=== PATIENT | male | born 1945 | race Caucasian/White ===

== ENCOUNTER 2019-10-02 10:30 | Outpatient (CLI) | payer MEDICARE, OTHER, SELFPAY ==
--- NOTE | ~2019-10-02 | CT_ITS ---
EXAMINATION: CT chest wo con DATE: 10/02/2019 10:59 INDICATION: Generalized enlarged lymph nodes, shortness of breath and history of lung cancer TECHNIQUE: Computed tomography (CT) of the chest was performed without intravenous contrast. The dose -length product (DLP) was 340.76 mGy-cm. 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 COMPARISON: 08/08/2019 FINDINGS: Volume loss in the right hemithorax is consistent with history of lung cancer and partial p neumonectomy. There has been near complete resolution of previously identified right lung airspace op acities. Mediastinal lymphadenopathy has resolved. There is calcified coronary artery atherosclerosis . The heart size is normal. There is no pleural effusion or pneumothorax. Moderate emphysema is noted . Punctate calcifications in otherwise normal appearing liver and spleen likely represent healed gran ulomatous disease. IMPRESSION: 1. Near complete resolution of previously described right lung airspace opacities, consistent with re solving pneumonia. 2. Resolved reactive mediastinal lymphadenopathy. Reviewed, dictated and finalized at location A. 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 Near complete resolution of previously described right lung airspace opaciti es, consistent with resolving pneumonia. 2. Resolved reactive mediastinal lymphadenopathy.
== END 2019-10-02 10:31 | disposition home or self-care (01) ==
LOC: ANHIMG 10:33
PROVIDERS: PCP Internal Medicine; Visit Provider Nurse Practitioner
DX: R59.1 Generalized enlarged lymph nodes (principal)
CPT/HCPCS: 71250

== ENCOUNTER 2020-01-10 10:48 | Outpatient (CLI) | payer MEDICARE, OTHER, SELFPAY ==
--- NOTE | ~2020-01-10 | XR_ITS ---
XR chest 2V 01/10/2020 11:19 Indication: Cough and shortness of breath. History of lung cancer. Procedure: PA and lateral views of the chest Comparison: Comparison to multiple prior studies sequentially, with oldest reviewed study dated 09/23. Findings: There is blunting right lateral costophrenic recess, likely from previous right lower lobec lilo. Heart size normal. No acute focal pneumonia, edema or effusion. No acute osseous abnormality. Impression: 1: No acute cardiopulmonary disease. Reviewed, dictated and finalized at location A. Impression: 1: No acute cardiopulmonary disease.
== END 2020-01-10 10:49 | disposition home or self-care (01) ==
PROVIDERS: PCP Internal Medicine; Visit Provider Clinical Nurse Specialist
DX: R05 Cough (principal); R06.02 Shortness of breath; Z85.89 Personal history of malignant neoplasm of other organs and systems
CPT/HCPCS: 71046

== ENCOUNTER 2020-06-25 08:16 | Outpatient (CLI) | payer MEDICARE, OTHER, SELFPAY ==
--- NOTE | ~2020-06-25 | US_ITS ---
US arterial ankle brachial ind INDICATION: Peripheral vascular disease TECHNIQUE: Segmental pressures and plethysmographic and Doppler waveforms of the brachial and lower e xtremity arteries were obtained. COMPARISON: None. FINDINGS: Right and left brachial artery pressures of 122 mm Hg and 141 mm Hg, respectively, are concordant (no rmal difference <= 30 mmHg). The right ankle-brachial index (EDMOND) is 1.03 (normal >= 0.9-1.0). The right great toe-brachial index (TBI) is 0.7 (normal >= 0.60). The left EDMOND is 0.96. The left TBI is 0.94. IMPRESSION: 1. Normal ankle-brachial indices. Reviewed, dictated and finalized at location B.
== END 2020-06-25 08:17 | disposition home or self-care (01) ==
LOC: ANHIMG 08:19
PROVIDERS: PCP Internal Medicine; Visit Provider Internal Medicine
DX: I73.9 Peripheral vascular disease, unspecified (principal)
CPT/HCPCS: 93922

== ENCOUNTER 2020-07-08 14:11 | Outpatient (CLI) | payer MEDICARE, OTHER, SELFPAY ==
--- NOTE | 2020-07-14 14:35 | WPDPFTINT ---
PFT Interpretation PFT Interpretation: DOS: 07/08/2020 REQUESTING: Dr. Bravo REASON FOR TESTING: COPD SPIROMETRY The FEV1 is 73% predicted, 1.99 L. FVC is normal 97%. The FEV1/ FVC ratio is decreased at 50%. The FEF 25-75 is severely decreased at 23%. No bronchodilator was given. IMPRESSION: Mild obstructive ventilatory impairment which is severe in the small airways. No bronchodilator was given. Compared to prior study on June 11, 2016 the patient had a mild obstructive ventilatory impairment as well without response to bronchodilator. His FEV1% was 80 %, now 73%, decreased. There was a severe decrease in small airways flows.
== END 2020-07-08 14:12 | disposition home or self-care (01) ==
PROVIDERS: PCP Internal Medicine; Visit Provider Internal Medicine
DX: J44.9 Chronic obstructive pulmonary disease, unspecified (principal); R94.2 Abnormal results of pulmonary function studies
CPT/HCPCS: 94375

== ENCOUNTER 2020-09-16 03:14 | Outpatient (CLI) | payer MEDICARE, OTHER, SELFPAY ==
[2020-09-16 19:22] LABS: SARS-CoV-2 RNA PCR Negative
== END 2020-09-16 03:15 | disposition home or self-care (01) ==
LOC: ANHCOVIDDT 03:15
PROVIDERS: PCP Internal Medicine; Visit Provider Internal Medicine Cardiovascular Disease
DX: Z01.812 Encounter for preprocedural laboratory examination (principal); Z20.822 Contact with and (suspected) exposure to COVID-19
CPT/HCPCS: C9803; U0003; U0005

== ENCOUNTER 2020-09-19 02:13 | Day surgery (SDC) | payer MEDICARE, OTHER, SELFPAY ==
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
[2020-09-18 16:40] VITALS: BMI 31.5
[2020-09-19 09:36] VITALS: BP 119/80; PULSE 82; RESP 16; O2SAT 96; BMI 31.6
--- NOTE | 2020-09-19 09:36 | ECG_ITS ---
Measurements Intervals [place] Rate: 87 P: ID: 0 QRS: 42 QRSD: 102 T: 30 QT: 350 QTc: 422 Interpretive Statements ATRIAL FIBRILLATION ABNORMAL ECG Electronically Signed On 09-19-2020 9:56:17 SOLUTIONS DEVELOPER by Nikolai Palacios D.O.
--- NOTE | 2020-09-19 09:54 | WPDHPUPDATE1 ---
History and Physical Update Update Date/Time: 09/19/20 09:54 History and Physical has been reviewed, including an updated exam of the patient. There are NO changes in the patient's condition. Risks, benefits, and alternatives have been discussed and questions answered. Patient agrees to proceed with procedure.
--- NOTE | 2020-09-19 09:54 | WPDCARDVER ---
Cardioversion Cardioversion Date of procedure: 09/19/20 Procedure: Elective electrical cardioversion Pre-op diagnosis: symptomatic atrial fibrillation Post-op diagnosis: same Indications: symptomatic atrial fibrillation Description of procedure: Brief history present illness: Patient is a pleasant 75-year-old male with past medical history significant for paroxysmal atrial fibrillation, lung cancer, COPD, hypertension, dyslipidemia, diabetes mellitus, CAD with prior stent implantation who presented to the office 09/12/2020 with complaints of progressive shortness of breath and fatigue found to be in atrial fibrillation refractory to medical therapy. Patient subsequently referred for elective electrical cardioversion in attempt to restore sinus rhythm. Procedure in detail: After verbal and written informed consent was obtained the patient risks, benefits, and alternatives explained in detail the patient agreed to proceed with the plan of care as outlined above. Patient was evaluated at bedside in the [facility] procedure room. On examination, neck was supple with normal range of motion, no restrictions to opening of the oral cavity, jaw angle and posterior hypopharynx was clear. Lungs were clear to auscultation. Patient was placed in appropriate 30 to 45 degree angle in a supine position. Patient was monitored throughout the study with telemetry, oxygen saturation, end-tidal CO2 monitoring, blood pressure, heart rate, and respirations. Anterior and posterior defibrillator pads placed in the appropriate positions. After confirmation of adequate sedation electrical cardioversion was carried out without complication. Patient tolerated the procedure well without difficulty. Sedation: Moderate Sedation/Anesthesia administration: Please see Anesthesiology documentation for procedure details and sedation administration. There were no other issues or complications and patient tolerated the procedure well and sedation protocol well and I was present for the entirety. Findings: Elective electrical cardioversion: After confirmation of adequate sedation and persistence of atrial fibrillation, 200 joules synched biphasic energy x1 was delivered with immediate confucianist of sinus rhythm. Twelve lead EKG was obtained postprocedure confirming sinus rhythm. Complications: None Conclusion: Successful confucianist of sinus rhythm with 200 joules synched biphasic energy x1. Continue systemic anticoagulation without interruption until advised but especially over the next 30 days post cardioversion Continue current medical therapy..
[2020-09-19 10:14] LABS: Anion Gap 11 mmol/L (8-16); Blood Urea Nitrogen 23 mg/dL (9-20); Calcium 9.1 mg/dL (8.4-10.2); Carbon Dioxide 27 mmol/L (22-30); Chloride 101 mmol/L (98-107); Estimated CRCL calculation 32 ml/min; Estimated Glomerular Filt Rate 31; Glucose 139 mg/dL (75-110); Magnesium 1.7 mg/dL (1.6-2.3); Potassium 3.7 mmol/L (3.4-5.0); Sodium 139 mmol/L (137-145)
--- NOTE | 2020-09-19 10:43 | ECG_ITS ---
Measurements Intervals [place] Rate: 60 P: 67 MT: 176 QRS: 28 QRSD: 102 T: 46 QT: 414 QTc: 417 Interpretive Statements SINUS RHYTHM BASELINE ARTIFACT- V2 NORMAL ECG Electronically Signed On 09-19-2020 10:55:36 HISTOPATH TECH by Nikolai Palacios D.O.
[2020-09-19 10:50] VITALS: BP 112/62; PULSE 62; RESP 15; O2SAT 99
[2020-09-19 11:05] VITALS: BP 101/71; PULSE 61; RESP 13; O2SAT 97
[2020-09-19 11:20] VITALS: BP 107/59; PULSE 64; RESP 15; O2SAT 98
--- NOTE | 2020-09-19 12:47 | SUR.PHASEII ---
Patient educated on follow up care at time of discharge, including medication regimen, reportable S/S, and scheduled follow-up appointments. Patient A & O x 4 and denies pain. PIV removed. VSS. Patient verbalizes understanding of plan of care. All questions answered. Patient taken to vehicle via WC with staff, and was picked up by his .
== END 2020-09-19 12:45 | disposition home or self-care (01) ==
PROVIDERS: PCP Internal Medicine; Visit Provider Internal Medicine Cardiovascular Disease
PROC: 5A2204Z Restoration of Cardiac Rhythm, Single (ICD-10-PCS; principal; 2020-09-19 10:30)
DX: I48.20 Chronic atrial fibrillation, unspecified (principal); I12.9 Hypertensive chronic kidney disease with stage 1 through stage 4 chronic kidney disease, or unspecified chronic kidney disease; F41.9 Anxiety disorder, unspecified; J45.909 Unspecified asthma, uncomplicated; I25.10 Atherosclerotic heart disease of native coronary artery without angina pectoris; N18.9 Chronic kidney disease, unspecified; J44.9 Chronic obstructive pulmonary disease, unspecified; E11.9 Type 2 diabetes mellitus without complications; E78.5 Hyperlipidemia, unspecified; D72.829 Elevated white blood cell count, unspecified; D61.818 Other pancytopenia; K42.9 Umbilical hernia without obstruction or gangrene; Z87.891 Personal history of nicotine dependence
CPT/HCPCS: 36415; 80048; 83735; 92960; 93005; J2704

== ENCOUNTER 2020-09-22 09:19 | Outpatient (CLI) | payer MEDICARE, OTHER, SELFPAY ==
--- NOTE | 2020-09-22 13:19 | WPDSIXMINUTE ---
Six Minute Walk This is a 6 minutes walk for exertional dyspnea. Findings: The patient's resting room air oxygen saturation measured by pulse oximetry was 94% and her heart rate was 79 bpm. Patient ambulated for 304 meters and oxygen saturation remained 92 to 95%. Heart rate at the end of the study was 96 bpm. There are no prior studies for comparison.
== END 2020-09-22 09:20 | disposition home or self-care (01) ==
PROVIDERS: PCP Internal Medicine; Visit Provider Internal Medicine
DX: R06.09 Other forms of dyspnea (principal)
CPT/HCPCS: 99199

== ENCOUNTER 2021-05-27 06:55 | Outpatient (RCR) | payer MEDICARE, OTHER, SELFPAY ==
[2021-05-26 09:48] LABS: Hematocrit 25.5 % (42.0-52.0); Hemoglobin 7.5 g/dL (14.0-18.0)
[2021-05-27 08:54] VITALS: BP 115/62; PULSE 80; RESP 16; TEMP 36; O2SAT 98
[2021-05-27 09:15] VITALS: BP 111/57; PULSE 82; RESP 16; TEMP 36.1; O2SAT 100
[2021-05-27 10:15] VITALS: BP 110/59; PULSE 80; RESP 16; TEMP 36.2; O2SAT 100
[2021-05-27 11:15] VITALS: BP 108/59; PULSE 77; RESP 17; TEMP 35.9; O2SAT 98
[2021-05-27 12:07] VITALS: BP 112/66; PULSE 61; RESP 16; TEMP 35.9; O2SAT 96
--- NOTE | 2021-05-27 12:15 | PC.NURSE ---
1 unit of PRBC infused without difficulty. No signs of transfusion reaction throughout or at completion. Instructions handout given to patient. PIV removed, catheter intact, dressing applied. Patient escorted to vehicle via wheelchair.
== END 2021-08-24 23:59 | disposition home or self-care (01) ==
LOC: ANHCPCTRAN 06:55
PROVIDERS: PCP Internal Medicine; Visit Provider Internal Medicine
DX: D64.9 Anemia, unspecified (principal)
CPT/HCPCS: 36415; 36430; 85014; 85018; 86850; 86900; 86901; 86920; J7050; P9016

== ENCOUNTER 2021-07-09 00:39 | Day surgery (SDC) | payer MEDICARE, OTHER, SELFPAY ==
[2021-06-25 13:24] VITALS: BMI 30.7
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
[2021-07-09 09:20] VITALS: BP 153/64; PULSE 72; RESP 20; TEMP 37.2; O2SAT 99
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
[2021-07-09] MEDS: LACTATED RINGERS 1,000 ML 150 ML IV CONT (09:35)
[2021-07-09 09:47] LABS: Glucose Point of Care 141 mg/dl (65-105)
--- NOTE | 2021-07-09 10:57 | SUR.OPER ---
EGD START 1026; END 1031. COLONOSCOPY START 1039; END 1055.
[2021-07-09 11:01] VITALS: BP 111/46; PULSE 67; RESP 22; O2SAT 99
[2021-07-09 11:11] VITALS: BP 110/61; PULSE 65; RESP 20; O2SAT 100
[2021-07-09 11:21] VITALS: BP 117/55; PULSE 65; RESP 21; O2SAT 98
== END 2021-07-09 11:27 | disposition home or self-care (01) ==
PROVIDERS: PCP Internal Medicine; Visit Provider Internal Medicine Gastroenterology
PROC: 0DJ08ZZ Inspection of Upper Intestinal Tract, Via Natural or Artificial Opening Endoscopic (ICD-10-PCS; CPT 43235; principal; 2021-07-09 10:30)
DX: Z12.11 Encounter for screening for malignant neoplasm of colon (principal); D50.9 Iron deficiency anemia, unspecified; K57.30 Diverticulosis of large intestine without perforation or abscess without bleeding; D12.4 Benign neoplasm of descending colon; D12.2 Benign neoplasm of ascending colon; K31.7 Polyp of stomach and duodenum; K21.9 Gastro-esophageal reflux disease without esophagitis; I25.10 Atherosclerotic heart disease of native coronary artery without angina pectoris; I12.9 Hypertensive chronic kidney disease with stage 1 through stage 4 chronic kidney disease, or unspecified chronic kidney disease; N18.9 Chronic kidney disease, unspecified; E11.22 Type 2 diabetes mellitus with diabetic chronic kidney disease; E78.5 Hyperlipidemia, unspecified; I48.20 Chronic atrial fibrillation, unspecified; F41.9 Anxiety disorder, unspecified; J44.9 Chronic obstructive pulmonary disease, unspecified; Z85.118 Personal history of other malignant neoplasm of bronchus and lung; Z90.2 Acquired absence of lung [part of]; Z95.5 Presence of coronary angioplasty implant and graft; Z87.891 Personal history of nicotine dependence; Z79.01 Long term (current) use of anticoagulants; Z79.51 Long term (current) use of inhaled steroids; Z79.84 Long term (current) use of oral hypoglycemic drugs
CPT/HCPCS: 45380; 45385; 43239; 82948; 87081; 88305; J2704; J7120

== ENCOUNTER 2021-12-30 14:45 | Outpatient (CLI) | payer MEDICARE, OTHER, SELFPAY ==
--- NOTE | ~2021-12-30 | CT_ITS ---
EXAMINATION: CT cervical spine wo con DATE: 12/30/2021 15:02 INDICATION: Cervical radiculopathy. TECHNIQUE: Computed tomography (CT) of the cervical spine was performed without intravenous contrast. Automated exposure control and iterative reconstruction technique were employed. The dose-length pro duct was 543.24 mGy-cm. COMPARISON: None FINDINGS: There is 3 degrees levocurvature of cervical spine. Vertebral body heights are normal. Ther e is moderately decreased disc height at C3-C4 mildly decreased disc height at C4-C5. The following d isc levels are specifically discussed: C2-C3: There is mild bilateral uncovertebral joint osteoarthritis. There is severe right and mild lef t facet joint osteoarthritis. There is mild right neural foraminal stenosis. There is no central lenard l stenosis. C3-C4: There is severe bilateral uncovertebral joint osteoarthritis. There is severe bilateral facet joint osteoarthritis. There is mild bilateral neural foraminal stenosis. There is mild central canal stenosis. C4-C5: There is mild bilateral uncovertebral joint osteoarthritis. There is moderate severe left face t joint osteoarthritis. There is mild bilateral neural foraminal stenosis. There is mild central lenard l stenosis. C5-C6: There is mild bilateral uncovertebral joint osteoarthritis. There is severe bilateral facet phill int osteoarthritis. There is mild bilateral neural foraminal stenosis. There is mild central canal st enosis. C6-C7: There is no uncovertebral joint osteoarthritis. There is severe right and mild left facet join t osteoarthritis. There is mild right neural foraminal stenosis. There is mild central canal stenosis . C7-T1: There is mild bilateral uncovertebral joint osteoarthritis. There is severe bilateral facet phill int osteoarthritis. There is mild bilateral neural foraminal stenosis. There is no central canal sten osis. IMPRESSION: 1. Moderate cervical spondylosis. Reviewed, dictated and finalized at location A.
== END 2021-12-30 14:46 | disposition home or self-care (01) ==
LOC: ANHIMG 14:49
PROVIDERS: PCP Internal Medicine; Visit Provider Nurse Practitioner Family
DX: M47.22 Other spondylosis with radiculopathy, cervical region (principal)
CPT/HCPCS: 72125

== ENCOUNTER → 2022-11-23 14:02 | Outpatient (CLI) | payer MEDICARE, OTHER, SELFPAY ==
--- NOTE | ~2022-11-23 | XR_ITS ---
EXAMINATION: XR chest 2V Exam Date/Time: 11/23/2022 14:08 CDT HISTORY: new sob hx of lower right lobectomy (lung ca) Comparison: 01/10/2020. RESULT: Lines, tubes, and devices: None. Lungs and pleura: Segmental right upper lobe airspace disease. Volume loss with airspace disease in the right middle lobe. Small volume right pleural fluid. Emphysematous change Cardiomediastinal silhouette: Stable. Other: No acute osseous or upper abdominal finding. IMPRESSION: Right upper lobe pneumonia. Atelectasis/surgical change in the right lower lung. Small right pleural effusion. Reviewed, dictated and finalized at location K. IMPRESSION: Right upper lobe pneumonia. Atelectasis/surgical change in the right lower lung . Small right pleural effusion.
== END ==
PROVIDERS: PCP Internal Medicine; Visit Provider Nurse Practitioner
DX: R06.02 Shortness of breath (principal); C34.90 Malignant neoplasm of unspecified part of unspecified bronchus or lung; J18.9 Pneumonia, unspecified organism
CPT/HCPCS: 71046

== ENCOUNTER 2023-01-23 19:10 | Emergency (ER) | payer MEDICARE, OTHER, SELFPAY ==
[2023-01-23] VITALS (14 sets, daily range): BP systolic 128–151; BP diastolic 64–99; PULSE 104–147; RESP 14–24; TEMP 37–38.1; O2SAT 97–98
--- NOTE | ~2023-01-23 | XR_ITS ---
EXAMINATION: XR chest 1V portable DATE: 01/23/2023 21:38 INDICATION: Cough. TECHNIQUE: A single frontal view of the chest was obtained. COMPARISON: Chest 2 views 11/23/2022, chest CT 10/02/2019 FINDINGS: There is right lung volume loss from right lower lobectomy. There are airspace opacities in right mid and lower lung zones. No pleural effusion or pneumothorax. The heart size is normal. IMPRESSION: 1. Airspace opacities in right mid and lower lung zones, consistent with atelectasis/scarring versus pneumonia. 2. Right lower lobectomy. Reviewed, dictated and finalized at location A. IMPRESSION: 1. Airspace opacities in right mid and lower lung zones, consistent with atelec tasis/scarring versus pneumonia. 2. Right lower lobectomy.
--- NOTE | ~2023-01-23 | XR_ITS ---
EXAMINATION: XR foot RT min 3V DATE: 01/23/2023 21:38 INDICATION: Right foot pain and swelling. Injury. TECHNIQUE: 4 views of right foot on 5 radiographs were obtained. COMPARISON: None. FINDINGS: There is moderate hallux valgus. No fracture. There is mild osteoarthritis of first metatar sophalangeal joint and some of the interphalangeal joints and midfoot joints. There are dystrophic ca lcifications medial to head of first metatarsal. IMPRESSION: 1. Moderate hallux varus. 2. Mild polyarticular osteoarthritis. Reviewed, dictated and finalized at location A.
[2023-01-23] MEDS: METOPROLOL TARTRATE INJ 5 MG/5 ML VIAL IV PUSH (21:44)
[2023-01-23 21:49] LABS: Hemoglobin 8.3 g/dL (14.0-18.0); Immature Platelet Fraction Pct 1.1 % (0.9-11.2); Mean Corpuscular HGB Conc 30.7 g/dl (32-36); Mean Corpuscular Hemoglobin 26.3 pg (26-34); Mean Corpuscular Volume 85.7 fl (80-100); Mean Platelet Volume 8.4 fl (7.4-10.4); Platelet Count Result 131 k/mm3 (150-375); Red Blood Count 3.15 M/mm3 (4.6-6.20); Red Cell Distribution Width 15.4 % (11.5-14.5); White Blood Count 15.9 K/mm3 (4.5-10.0)
[2023-01-23 21:58] LABS: Lactic Acid Reflex 1.3 mmol/L (0.7-2.0)
[2023-01-23 21:59] LABS: Alanine Aminotransferase 14 U/L (6-50); Albumin Level 4.2 g/dL (3.5-5.1); Alkaline Phosphatase 97 U/L (38-126); Anion Gap 10 mmol/L (8-16); Aspartate Amino Transferase 27 U/L (17-59); Bilirubin,Total 1.1 mg/dL (0.2-1.3); Blood Urea Nitrogen 13 mg/dL (9-20); Calcium 8.8 mg/dL (8.4-10.2); Carbon Dioxide 24 mmol/L (22-30); Chloride 102 mmol/L (98-107); Estimated CRCL calculation 49 ml/min; Estimated Glomerular Filt Rate > 60; Glucose 142 mg/dL (65-110); Magnesium 1.8 mg/dL (1.6-2.3); Potassium 4.1 mmol/L (3.4-5.0); Sodium 136 mmol/L (137-145)
[2023-01-23 22:01] LABS: INR 3.5; Prothrombin Time 38.1 Seconds (11.1-14.7)
[2023-01-23 22:02] LABS: Partial Thromboplastin Time 62.8 SECONDS (22.3-36.8)
[2023-01-23 22:10] LABS: NT Pro B Type Natriuretic Pept 1800 pg/mL (19.9-100); Troponin I < 0.012 ng/mL (0.000-0.034)
[2023-01-23 22:11] LABS: Lymphocytes Absolute Manual 2.38 K/mm3 (1.1-4.5); Lymphocytes Percent Manual 15 % (18-44); Neutrophils Percent Manual 52 % (46-73); Total Cells Counted 100
[2023-01-23 22:12] LABS: Eosinophils Absolute Manual 0.31 K/mm3 (0.02-0.5); Eosinophils Percent Manual 2 % (0-4); Monocytes Absolute Manual 4.92 K/mm3 (0.1-0.90); Monocytes Percent Manual 31 % (3-9); Ovalocytes 1+ (NORMAL); Schistocytes None Seen (NORMAL)
[2023-01-23] MEDS: MORPHINE SULFATE (*CRX) 4 MG/ML INJ IV PUSH (22:47)
[2023-01-23 23:21] LABS: Procalcitonin 0.2 ng/mL
[2023-01-24 00:42] VITALS: BP 142/86; PULSE 131; RESP 23; O2SAT 97
[2023-01-24 00:44] VITALS: PULSE 108
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
--- NOTE | 2023-01-24 00:58 | PC.NURSE ---
Pt able to ambulate on extremity to wheelchair with steady gait
[2023-01-24] MEDS: DOXYCYCLINE HYCLATE 100 MG TABLET PO (01:07)
== END 2023-01-24 01:24 | disposition home or self-care (01) ==
PROVIDERS: Emergency Provider Emergency Medicine; PCP Internal Medicine
DX: L03.115 Cellulitis of right lower limb (principal); S90.31XA Contusion of right foot, initial encounter; I48.91 Unspecified atrial fibrillation; I25.10 Atherosclerotic heart disease of native coronary artery without angina pectoris; E11.22 Type 2 diabetes mellitus with diabetic chronic kidney disease; I12.9 Hypertensive chronic kidney disease with stage 1 through stage 4 chronic kidney disease, or unspecified chronic kidney disease; N18.9 Chronic kidney disease, unspecified; J44.9 Chronic obstructive pulmonary disease, unspecified; E78.5 Hyperlipidemia, unspecified; Z95.5 Presence of coronary angioplasty implant and graft; Z85.118 Personal history of other malignant neoplasm of bronchus and lung; Z87.891 Personal history of nicotine dependence; Z89.111 Acquired absence of right hand; Z90.2 Acquired absence of lung [part of]; Z79.01 Long term (current) use of anticoagulants; Z79.84 Long term (current) use of oral hypoglycemic drugs; W20.8XXA Other cause of strike by thrown, projected or falling object, initial encounter
CPT/HCPCS: 36415; 71045; 73630; 80053; 83605; 83735; 83880; 84145; 84484; 85025; 85055; 85610; 85730; 87040; 96374; 96375; 99284; A9270; J2270

== ENCOUNTER 2023-02-04 11:41 | Emergency (ER) | payer MEDICARE, OTHER, SELFPAY ==
[2023-02-04] VITALS (7 sets, daily range): BP systolic 113–123; BP diastolic 60–78; PULSE 115; RESP 18; TEMP 37.1; O2SAT 97–100
--- NOTE | ~2023-02-04 | XR_ITS ---
EXAMINATION: XR knee RT min 4V DATE: 02/04/2023 15:06 INDICATION: Right knee pain. TECHNIQUE: 4 views of right knee were obtained. COMPARISON: None. FINDINGS: Bone alignment is normal. No fracture. The patella is bipartite. There is mild tricompartme ntal osteoarthritis. There is a moderate-sized knee joint effusion. There are multiple scattered radi opaque foreign bodies measuring up to 5 mm. IMPRESSION: 1. Mild right knee osteoarthritis. 2. Moderate-sized right knee joint effusion. 3. Multiple radiopaque foreign bodies. Reviewed, dictated and finalized at location A.
--- NOTE | ~2023-02-04 | US_ITS ---
EXAMINATION: US venous doppler LE RT DATE: 02/04/2023 15:19 INDICATION: Right lower limb pain. TECHNIQUE: Grayscale ultrasound images without and with compression and Doppler ultrasound images of the right lower extremity veins were obtained. COMPARISON: Right knee radiograph 02/04/2023 FINDINGS: The visualized portions of right common femoral vein, profunda (deep) femoral vein, femoral vein, pop liteal vein, peroneal veins, posterior tibial veins, and greater saphenous vein outflow are patent. T here is a right knee joint effusion. IMPRESSION: 1. No deep venous thrombosis. 2. Moderate-sized right knee joint effusion. Reviewed, dictated and finalized at location A.
[2023-02-04 15:33] LABS: Hemoglobin 7.5 g/dL (14.0-18.0); Mean Corpuscular Hemoglobin 25.8 pg (26-34); Mean Corpuscular Volume 85.9 fl (80-100); Mean Platelet Volume 8.7 fl (7.4-10.4); Platelet Count Result 103 k/mm3 (150-375); Red Blood Count 2.91 M/mm3 (4.6-6.20); White Blood Count 11.8 K/mm3 (4.5-10.0)
[2023-02-04 15:44] LABS: Alanine Aminotransferase 12 U/L (6-50); Alkaline Phosphatase 79 U/L (38-126); Anion Gap 9 mmol/L (8-16); Aspartate Amino Transferase 28 U/L (17-59); Bilirubin,Total 0.7 mg/dL (0.2-1.3); Blood Urea Nitrogen 21 mg/dL (9-20); Calcium 8.7 mg/dL (8.4-10.2); Carbon Dioxide 24 mmol/L (22-30); Chloride 103 mmol/L (98-107); Estimated CRCL calculation 54 ml/min; Estimated Glomerular Filt Rate > 60; Glucose 104 mg/dL (65-110); Potassium 4.4 mmol/L (3.4-5.0); Sodium 136 mmol/L (137-145)
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
[2023-02-04 16:12] LABS: Prothrombin Time 24.1 Seconds (11.1-14.7)
[2023-02-04 16:13] LABS: Partial Thromboplastin Time 51.9 SECONDS (22.3-36.8)
[2023-02-04 16:23] LABS: Band Neutrophils Percent 2 % (0-6); Lymphocytes Absolute Manual 2.47 K/mm3 (1.1-4.5); Monocytes Absolute Manual 2.36 K/mm3 (0.1-0.90); Monocytes Percent Manual 20 % (3-9); Neutrophils Absolute Manual 6.96 K/mm3 (1.3-6.7); Neutrophils Percent Manual 57 % (46-73); Platelet Estimate Decreased (Adequate); Total Cells Counted 100
[2023-02-04 16:24] LABS: Anisocytosis 2+ (NORMAL); Hypochromasia 1+ (NORMAL); Schistocytes None Seen (NORMAL)
== END 2023-02-04 16:55 | disposition home or self-care (01) ==
PROVIDERS: Emergency Provider General Practice; PCP Internal Medicine
DX: M25.461 Effusion, right knee (principal); D64.9 Anemia, unspecified; I25.10 Atherosclerotic heart disease of native coronary artery without angina pectoris; J44.9 Chronic obstructive pulmonary disease, unspecified; E11.22 Type 2 diabetes mellitus with diabetic chronic kidney disease; I12.9 Hypertensive chronic kidney disease with stage 1 through stage 4 chronic kidney disease, or unspecified chronic kidney disease; N18.9 Chronic kidney disease, unspecified; E78.5 Hyperlipidemia, unspecified; F41.9 Anxiety disorder, unspecified; R06.02 Shortness of breath; Z95.5 Presence of coronary angioplasty implant and graft; Z85.118 Personal history of other malignant neoplasm of bronchus and lung; Z87.891 Personal history of nicotine dependence; Z89.111 Acquired absence of right hand; Z90.2 Acquired absence of lung [part of]; Z79.84 Long term (current) use of oral hypoglycemic drugs; Z79.01 Long term (current) use of anticoagulants; M17.11 Unilateral primary osteoarthritis, right knee
CPT/HCPCS: 36415; 73564; 80053; 85025; 85610; 85730; 93971; 99284

== ENCOUNTER 2023-03-17 02:39 | Day surgery (SDC) | payer MEDICARE, OTHER, SELFPAY ==
[2023-03-09 13:51] VITALS: BMI 27.6
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
[2023-03-17 07:52] VITALS: BP 133/73; PULSE 95; RESP 18; TEMP 36.6; O2SAT 100
[2023-03-17] MEDS: LACTATED RINGERS 1,000 ML 150 ML IV CONT (08:06)
[2023-03-17 08:13] LABS: Glucose Point of Care 96 mg/dl (65-105)
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
[2023-03-17 09:00] VITALS: BP 109/69; PULSE 97; RESP 32; O2SAT 99
[2023-03-17 09:10] VITALS: BP 125/63; PULSE 81; RESP 35; O2SAT 98
[2023-03-17 09:20] VITALS: BP 146/69; PULSE 94; RESP 35; O2SAT 97
== END 2023-03-17 09:33 | disposition home or self-care (01) ==
PROVIDERS: PCP Internal Medicine; Visit Provider Internal Medicine Gastroenterology
PROC: 0DJ08ZZ Inspection of Upper Intestinal Tract, Via Natural or Artificial Opening Endoscopic (ICD-10-PCS; CPT 43235; principal; 2023-03-17 08:30)
DX: D50.9 Iron deficiency anemia, unspecified (principal); K64.8 Other hemorrhoids; K57.30 Diverticulosis of large intestine without perforation or abscess without bleeding; D12.2 Benign neoplasm of ascending colon; D12.3 Benign neoplasm of transverse colon; K21.9 Gastro-esophageal reflux disease without esophagitis; K31.7 Polyp of stomach and duodenum; I12.9 Hypertensive chronic kidney disease with stage 1 through stage 4 chronic kidney disease, or unspecified chronic kidney disease; E11.22 Type 2 diabetes mellitus with diabetic chronic kidney disease; N18.9 Chronic kidney disease, unspecified; I25.10 Atherosclerotic heart disease of native coronary artery without angina pectoris; J44.9 Chronic obstructive pulmonary disease, unspecified; I48.20 Chronic atrial fibrillation, unspecified; E78.5 Hyperlipidemia, unspecified; F41.9 Anxiety disorder, unspecified; Z85.118 Personal history of other malignant neoplasm of bronchus and lung; Z79.01 Long term (current) use of anticoagulants; Z90.2 Acquired absence of lung [part of]; Z95.5 Presence of coronary angioplasty implant and graft; Z79.84 Long term (current) use of oral hypoglycemic drugs; Z79.51 Long term (current) use of inhaled steroids; Z79.891 Long term (current) use of opiate analgesic; Z87.891 Personal history of nicotine dependence
CPT/HCPCS: 45385; 43251; 82948; 88305; J2704; J7120

== ENCOUNTER 2023-05-15 20:05 | Inpatient (IN) | payer MEDICARE, OTHER, SELFPAY ==
--- NOTE | ~2023-05-15 | CT_ITS ---
Clinical Indication: Tachycardia, shortness of breath CT Scan of the Chest with Contrast: Technique: Contiguous sections were acquired throughout the chest after intravenous administration of 100 cc of Omnipaque 350. Dose reduction technique was used on this scan by utilizing automated expos ure control and iterative reconstruction technique. The dose-length product (DLP) was 477.44 mGy-cm. COMPARISON: 10/02/2019 Findings: There is no evidence of any significant mediastinal, hilar or axillary lymphadenopathy. There is no f illing defect in the pulmonary arterial tree to suggest pulmonary embolus. There is no evidence of ao rtic dissection or aneurysm. No pericardial effusion. Small layering left pleural effusion is present. There is minimal probable partially loculated right basilar pleural effusion. There is evidence of prior probable right lower lobectomy with right-sided volume loss. There is exte nsive patchy consolidation and interstitial thickening in the right lung, with additional involvement in the left lower lobe and inferior portions of the left upper lobe. There is focal somewhat nodular area of consolidation in the right lung base measuring 1.9 cm in diameter (axial image 80). Several other small solid nodular opacities are present at the lung bases bilaterally. Images through the upper abdomen reveal small calcified gallstone. Impression: No evidence of pulmonary embolus, aortic dissection, or aortic aneurysm. Patchy airspace disease and interstitial thickening, involving all pulmonary lobes, right lung worse than left. There is some more focal nodular opacities particularly the lung bases, largest measuring 1.9 cm at the right lung base. Diagnostic considerations include metastatic disease, pulmonary edema, pneumonia, or combination of these diagnoses. Correlate with clinical symptomatology. Short-term fol low-up exam after both interval therapy for acute pathology is advised to assess for persistent pulmo nary nodules which would be suspicious for metastatic disease. Small bilateral pleural effusions, as detailed above. Cholelithiasis. Reviewed, dictated and finalized at location . Impression: No evidence of pulmonary embolus, aortic dissection, or aortic aneurysm. Patchy airspace disease and interstitial thickening, involving all pulmonary lo bes, right lung worse than left. There is some more focal nodular opacities par ticularly the lung bases, largest measuring 1.9 cm at the right lung base. Diag nostic considerations include metastatic disease, pulmonary edema, pneumonia, o r combination of these diagnoses. Correlate with clinical symptomatology. Short -term follow-up exam after both interval therapy for acute pathology is advised to assess for persistent pulmonary nodules which would be suspicious for metas tatic disease. Small bilateral pleural effusions, as detailed above. Cholelithiasis.
--- NOTE | ~2023-05-15 | XR_ITS ---
EXAMINATION: XR chest 1V portable Exam Date/Time: 05/15/2023 20:25 CDT HISTORY: dyspnea Comparison: 01/23/2023. RESULT: Lines, tubes, and devices: None. Lungs and pleura: Right lung volume loss and scarring. Mid and lower lung groundglass and reticular opacities. Right costophrenic angle blunting. Cardiomediastinal silhouette: Stable. Other: No acute osseous or upper abdominal finding. IMPRESSION: Pulmonary opacities may represent edema, overlying chronic interstitial and/or emphysematous changes and right lobectomy change. Small right pleural effusion. Infection is not excluded. Reviewed, dictated and finalized at location K.
[2023-05-15 20:09] VITALS: BP 155/77; PULSE 105; RESP 24; TEMP 36.6; O2SAT 96
--- NOTE | 2023-05-15 20:22 | ECG_ITS ---
Measurements Intervals [place] Rate: 106 P: FL: 0 QRS: 25 QRSD: 97 T: 46 QT: 338 QTc: 450 Interpretive Statements ATRIAL FIBRILLATION WITH RAPID VENTRICULAR RESPONSE FREQUENT VENTRICULAR PREMATURE COMPLEXES ABNORMAL ECG COMPARED TO ECG 09/19/2020 10:51:44 ATRIAL FIBRILLATION NOW PRESENT Electronically Signed On 05-16-2023 6:23:21 CDT by Nikolai Palacios D.O.
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
[2023-05-15 21:33] LABS: Influenza A QL RT-PCR Negative (Negative); Influenza B QL RT-PCR Negative (Negative); RSV RNA, RT-PCR Negative (Negative); SARS-CoV-2 RNA PCR Negative (Negative)
[2023-05-15 22:08] LABS: Alveolar/Arterial O2 Gradient 84.2 mmHg; Fractional Inspired Oxygen 28 %; HCO3 ABG 21.9 mEq/l (22.0-26.0); Oxygen Content ABG 9.6 %vol (16.0-22.0); Oxygen Saturation ABG 96.9 % (95.0-100.0); PCO2 ABG 29.1 mmHg (35.0-45.0); PO2 ABG 81.1 mmHg (80.0-100.0); pH ABG 7.495 (7.350-7.450)
[2023-05-15 22:10] LABS: Total Hemoglobin 7.2 g/dL (12.0-18.0)
[2023-05-15 22:11] LABS: Device NASAL CANNULA; Modified Allen's Test Pass; Site Drawn LEFT RADIAL
[2023-05-15 22:21] LABS: Hematocrit 21.7 % (42.0-52.0); Immature Platelet Fraction Pct 0.8 % (0.9-11.2); Mean Corpuscular HGB Conc 29.5 g/dl (32-36); Mean Corpuscular Hemoglobin 28.8 pg (26-34); Mean Corpuscular Volume 97.7 fl (80-100); Mean Platelet Volume 8.2 fl (7.4-10.4); Platelet Count Result 114 k/mm3 (150-375); Red Blood Count 2.22 M/mm3 (4.6-6.20); Red Cell Distribution Width 17.9 % (11.5-14.5)
[2023-05-15 22:31] LABS: Alanine Aminotransferase 11 U/L (6-50); Albumin Level 3.4 g/dL (3.5-5.1); Alkaline Phosphatase 88 U/L (38-126); Anion Gap 10 mmol/L (8-16); Aspartate Amino Transferase 19 U/L (17-59); Bilirubin,Total 0.9 mg/dL (0.2-1.3); Blood Urea Nitrogen 16 mg/dL (9-20); Calcium 8.7 mg/dL (8.4-10.2); Carbon Dioxide 22 mmol/L (22-30); Chloride 103 mmol/L (98-107); Estimated CRCL calculation 53 ml/min; Estimated Glomerular Filt Rate > 60; Glucose 114 mg/dL (65-110); Potassium 4.2 mmol/L (3.4-5.0); Sodium 135 mmol/L (137-145)
[2023-05-15 22:33] LABS: Hemoglobin 6.4 g/dL (14.0-18.0)
[2023-05-15 22:34] LABS: INR 1.9; Lymphocytes Absolute Manual 1.26 K/mm3 (1.1-4.5); Lymphocytes Percent Manual 14 % (18-44); Metamyelocytes Percent 1 %; Monocytes Absolute Manual 2.07 K/mm3 (0.1-0.90); Monocytes Percent Manual 23 % (3-9); Myelocytes Percent 1 %; Neutrophils Percent Manual 61 % (46-73); Platelet Estimate Decreased (Adequate); Prothrombin Time 23.3 Seconds (11.1-14.7); Total Cells Counted 100
[2023-05-15 22:35] LABS: Anisocytosis 1+ (NORMAL); Hypochromasia 1+ (NORMAL); Ovalocytes 1+ (NORMAL); Partial Thromboplastin Time 41.4 SECONDS (22.3-36.8); Schistocytes None Seen (NORMAL)
[2023-05-15 22:36] LABS: D Dimer 0.68 ug/mL (<0.48)
[2023-05-15 22:42] LABS: NT Pro B Type Natriuretic Pept 3570 pg/mL (19.9-100); Troponin I < 0.012 ng/mL (0.000-0.034)
[2023-05-15 23:08] VITALS: O2SAT 100
[2023-05-15 23:33] VITALS: O2SAT 99
[2023-05-16] VITALS (21 sets, daily range): BP systolic 133–157; BP diastolic 60–80; PULSE 78–106; RESP 15–22; TEMP 35.6–36.9; O2SAT 95–100; BMI 25.4
[2023-05-16] MEDS: TUBING, BLOOD PLUM PUMP TUBING 1 EACH XX (00:09)
[2023-05-16] MEDS: SODIUM CHLORIDE 0.9% IV 250 ML 30 ML IV CONT (00:09)
[2023-05-16 00:31] LABS: Appearance Urine Clear (Clear); Bacteria Urine None Seen /hpf; Bilirubin Urine Negative (Negative); Blood Urine Negative (Negative); Color Urine Yellow (Yellow); Glucose Urine UA Negative (Negative); Ketones Urine Negative (Negative); Leukocyte Esterase Ur Trace LEU/UL (Negative); Nitrate Urine Negative (Negative); Non Pathogenic Casts 0-2; Protein Urine Negative (Negative); RBC Urine 0-2 /hpf (0-2); Specific Grav Ur 1.022 (1.001-1.035); Squamous Epithelial Cell Urine None seen /hpf (Few); WBC Urine 0-5 /hpf
[2023-05-16 01:01] LABS: Add Urine Microscopic? YES
[2023-05-16] MEDS: HYDROcodone/acetaminophen (*CRX) 5-325 MG TABLET 1 TAB PO ×3 (01:07→18:25)
[2023-05-16 05:15] LABS: Troponin I < 0.012 ng/mL (0.000-0.034)
[2023-05-16 05:30] LABS: Basophils Percent Auto 0.3 % (0.2-1.2); Eosinophils Percent Auto 0.2 % (0-4.4); Hematocrit 25.3 % (42.0-52.0); Hemoglobin 7.6 g/dL (14.0-18.0); Immature Granulocyte Absolute 0.86 K/mm3 (0.00-0.031); Immature Granulocyte Percent A 8.9 % (0-0.5); Lymphocytes Absolute Auto 1.32 K/mm3 (0.9-3.2); Lymphocytes Percent Auto 13.6 % (18.3-44.2); Mean Corpuscular Hemoglobin 28.5 pg (26-34); Mean Corpuscular Volume 94.8 fl (80-100); Mean Platelet Volume 8.6 fl (7.4-10.4); Monocytes Absolute Auto 2.5 K/mm3 (0.1-0.6); Monocytes Percent Auto 26.1 % (2.6-8.5); Neutrophils Percent Auto 50.9 % (45.5-73.1); Platelet Count Result 99 k/mm3 (150-375); Red Blood Count 2.67 M/mm3 (4.6-6.20); Red Cell Distribution Width 17.4 % (11.5-14.5); White Blood Count 9.7 K/mm3 (4.5-10.0)
[2023-05-16 05:41] LABS: Lactate Dehydrogenase 208 U/L (120-246)
[2023-05-16 05:44] LABS: Anion Gap 6 mmol/L (8-16); Blood Urea Nitrogen 15 mg/dL (9-20); Calcium 8.7 mg/dL (8.4-10.2); Carbon Dioxide 23 mmol/L (22-30); Chloride 104 mmol/L (98-107); Estimated CRCL calculation 53 ml/min; Estimated Glomerular Filt Rate > 60; Glucose 114 mg/dL (65-110); Iron 38 ug/dL (49-181); Potassium 4.3 mmol/L (3.4-5.0); Sodium 133 mmol/L (137-145)
[2023-05-16 05:54] LABS: Percent Iron Saturation 10 % (20-50)
[2023-05-16 05:55] LABS: Anisocytosis 1+ (NORMAL); Platelet Estimate Decreased (Adequate); Polychromasia 1+ (NORMAL)
[2023-05-16 05:56] LABS: Schistocytes Rare (NORMAL)
[2023-05-16 06:45] LABS: Folic Acid 9.6 ng/mL (2.76->20)
--- NOTE | 2023-05-16 06:54 | ADMGEN ---
This patient, Roberth Lagunas, was admitted to IMU Room 214-01 at 0343. Patient/family oriented to hospital policies and general routines including ID bracelet, bed and alarms, visiting hours, pain management, procedures, bathroom and other care routines, personal items, smoking policy, room service/diet, and visiting hours. Information on how to activate the Rapid Response Team has been discussed. Patient/Family are encouraged to report perceived risks to care and to ask questions if they do not understand what they are told or what they should do.
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
[2023-05-16] MEDS: SERTRALINE HCL 50 MG TABLET PO (10:36)
[2023-05-16] MEDS: RIVAROXABAN 15 MG TABLET PO (10:36)
[2023-05-16] MEDS: PANTOPRAZOLE 40 MG TABLET PO (10:36)
[2023-05-16] MEDS: ROFLUMILAST 500 MCG TABLET PO (10:36)
[2023-05-16] MEDS: PRAVASTATIN SODIUM 20 MG TABLET 80 MG PO (10:36)
[2023-05-16] MEDS: IRON SUCROSE COMPLEX 500 MG in SODIUM CHLORIDE 0.9% IV 250 ML 78.57 MG IVPB (12:03)
[2023-05-16] MEDS: oxyCODONE HCL (*CRX) 5 MG TAB IR PO (12:36)
[2023-05-16] MEDS: OMEGA 3 POLYUNSAT FATTY ACIDS 1 GM CAP PO (18:27)
[2023-05-16] MEDS: FLUTICASONE/SALMETEROL 230-21 MCG INHALER 1 PUFF 2 PUFF INHALATION (20:07)
[2023-05-16] MEDS: amLODIPine BESYLATE 5 MG TABLET 10 MG PO (20:33)
[2023-05-17] VITALS (15 sets, daily range): BP systolic 105–122; BP diastolic 60–86; PULSE 73–130; RESP 16–20; TEMP 35.8–36.4; O2SAT 94–100
[2023-05-17] MEDS: oxyCODONE HCL (*CRX) 5 MG TAB IR PO ×2 (01:21→20:34)
[2023-05-17] MEDS: MONTELUKAST SODIUM 10 MG TABLET PO (08:51)
[2023-05-17] MEDS: RIVAROXABAN 15 MG TABLET PO (08:51)
[2023-05-17] MEDS: PANTOPRAZOLE 40 MG TABLET PO (08:51)
[2023-05-17] MEDS: PRAVASTATIN SODIUM 20 MG TABLET 80 MG PO (08:51)
[2023-05-17] MEDS: FERROUS SULFATE 325 MG TABLET DR PO ×2 (08:52→18:42)
[2023-05-17] MEDS: OMEGA 3 POLYUNSAT FATTY ACIDS 1 GM CAP PO ×2 (08:52→18:42)
[2023-05-17] MEDS: ROFLUMILAST 500 MCG TABLET PO (08:52)
[2023-05-17] MEDS: METOPROLOL SUCCINATE EXT REL 50 MG TABCR PO (08:52)
[2023-05-17] MEDS: SERTRALINE HCL 50 MG TABLET PO (08:52)
[2023-05-17 09:10] LABS: Basophils Percent Auto 0.3 % (0.2-1.2); Eosinophils Percent Auto 0.6 % (0-4.4); Hematocrit 23.5 % (42.0-52.0); Immature Granulocyte Absolute 0.57 K/mm3 (0.00-0.031); Immature Granulocyte Percent A 8.3 % (0-0.5); Immature Platelet Fraction Pct 0.9 % (0.9-11.2); Lymphocytes Absolute Auto 0.95 K/mm3 (0.9-3.2); Lymphocytes Percent Auto 13.9 % (18.3-44.2); Mean Corpuscular HGB Conc 29.4 g/dl (32-36); Mean Corpuscular Volume 95.5 fl (80-100); Mean Platelet Volume 9.1 fl (7.4-10.4); Monocytes Absolute Auto 1.5 K/mm3 (0.1-0.6); Monocytes Percent Auto 21.2 % (2.6-8.5); Neutrophils Absolute Auto 3.8 K/mm3 (1.3-6.7); Neutrophils Percent Auto 55.7 % (45.5-73.1); Platelet Count Result 80 k/mm3 (150-375); Red Blood Count 2.46 M/mm3 (4.6-6.20); Red Cell Distribution Width 17.3 % (11.5-14.5); White Blood Count 6.9 K/mm3 (4.5-10.0)
[2023-05-17 09:23] LABS: Alanine Aminotransferase 11 U/L (6-50); Albumin Level 3.3 g/dL (3.5-5.1); Alkaline Phosphatase 78 U/L (38-126); Anion Gap 6 mmol/L (8-16); Aspartate Amino Transferase 20 U/L (17-59); Bilirubin,Total 1.1 mg/dL (0.2-1.3); Blood Urea Nitrogen 11 mg/dL (9-20); Calcium 8.6 mg/dL (8.4-10.2); Carbon Dioxide 24 mmol/L (22-30); Chloride 104 mmol/L (98-107); Estimated CRCL calculation 58 ml/min; Estimated Glomerular Filt Rate > 60; Glucose 175 mg/dL (65-110); Potassium 4.3 mmol/L (3.4-5.0); Sodium 134 mmol/L (137-145)
[2023-05-17 09:47] LABS: Hemoglobin 6.9 g/dL (14.0-18.0)
[2023-05-17 09:48] LABS: Anisocytosis 1+ (NORMAL); Hypochromasia 1+ (NORMAL); Microcytosis 1+ (NORMAL); Platelet Estimate Decreased (Adequate); Schistocytes None Seen (NORMAL)
--- NOTE | 2023-05-17 10:14 | PM.IMPN ---
Progress Note: A&P Assessment and Plan (1) Anemia: Qualifiers: Anemia type: unspecified type Qualified Code(s): D64.9 - Anemia, unspecified Code(s): D64.9 - Anemia, unspecified Status: Acute Assessment and Plan: Multifactorial, check FOBT Monitor hemoglobin, administer venofer Improved after 1 unit pRBCs 05/15, may need second unit, monitor GI consult ordered and pending (2) Atrial fibrillation: Qualifiers: Atrial fibrillation type: unspecified Qualified Code(s): I48.91 - Unspecified atrial fibrillation Code(s): I48.91 - Unspecified atrial fibrillation Status: Acute Assessment and Plan: Rate controlled, monitor Per Dr. Garrison's note, echo from April 2023 showed normal EF, moderate mitral regurgitation and atrial fibrillation, no other significant abnormalities Cardio consult pending (3) Acute exacerbation of chronic obstructive pulmonary disease: Code(s): J44.1 - Chronic obstructive pulmonary disease with (acute) exacerbation Status: Acute Assessment and Plan: Does not appear to be in acute exacerbation, monitor Pulmonology consult pending (4) Pleural effusion, bilateral: Code(s): J90 - Pleural effusion, not elsewhere classified Status: Acute Assessment and Plan: Small bilateral effusions, could be secondary to heart failure, monitor Appears euvolemic otherwise (5) Pulmonary nodule: Code(s): R91.1 - Solitary pulmonary nodule Status: Acute Assessment and Plan: Being followed outpatient by pulmonology Plan DVT prophylaxis with xarelto GI prophylaxis not indicated Code status DNR Subjective Date/time seen: 05/17/23 10:14 Interval history: 78-year-old male with history of heart disease, AFib, kidney disease, COPD, diabetes, hypertension and hyperlipidemia among other comorbidities is presenting with chest pain, shortness of breath, increasingly worsening over the last month. No overnight events noted. Still SOB. No nausea, vomiting or diarrhea. No fevers or chills. Review of Systems Review of Systems: 12 point review of systems was assessed and was negative except as noted in the HPI Exam Narrative: General: No acute distress, alert and oriented per baseline HEENT: Atraumatic, normocephalic, mucous membranes moist CV: Regular rate and rhythm, S1, S2 Lungs: Clear to auscultation bilaterally, no rales or crackles noted, no wheezes, good air entry Abdomen: Soft, nontender, nondistended Extremities: Normal to inspection Skin: No rashes noted, no lesions or wounds seen Psych: Euthymic, normal affect Objective Data Vital Signs Vital Signs: Vital Signs - 24 hr 05/16/23 12:00 05/16/23 10:30 05/16/23 16:00 Temperature Pulse Rate 103 H 80 103 H Respiratory Rate 18 Blood Pressure Pulse Oximetry 95 Oxygen Delivery Nasal Cannula Oxygen Flow Rate 2 Fraction of Inspired Oxygen 05/16/23 16:40 05/16/23 20:08 05/16/23 20:09 Temperature 97.6 F Pulse Rate 96 82 78 Respiratory Rate 18 18 18 Blood Pressure 135/76 Pulse Oximetry 97 97 Oxygen Delivery Nasal Cannula Oxygen Flow Rate 3 Fraction of Inspired Oxygen 05/16/23 20:29 05/16/23 20:00 05/16/23 20:00 Temperature 97.5 F L Pulse Rate 89 98 98 Respiratory Rate 20 20 Blood Pressure 146/69 H Pulse Oximetry 95 95 Oxygen Delivery Nasal Cannula Oxygen Flow Rate 2 Fraction of Inspired Oxygen 05/17/23 00:00 05/17/23 04:00 05/17/23 05:54 Temperature 97.5 F L Pulse Rate 118 H 83 101 H Respiratory Rate 20 Blood Pressure 121/86 Pulse Oximetry 97 Oxygen Delivery Oxygen Flow Rate Fraction of Inspired Oxygen 05/17/23 08:00 05/17/23 08:52 05/17/23 10:02 Temperature 97.2 F L Pulse Rate 112 H 110 H 73 Respiratory Rate 20 16 Blood Pressure 120/66 Pulse Oximetry 100 100 Oxygen Delivery Nasal Cannula Oxygen Flow R
[2023-05-17] MEDS: IRON SUCROSE COMPLEX 500 MG in SODIUM CHLORIDE 0.9% IV 250 ML 78.57 MG IVPB (11:00)
[2023-05-17] MEDS: HYDROcodone/acetaminophen (*CRX) 5-325 MG TABLET 1 TAB PO ×2 (11:05→14:05)
--- NOTE | 2023-05-17 11:27 | PM.CNCAR ---
Assessment and Plan Assessment and plan (1) Persistent atrial fibrillation with rapid ventricular response: Code(s): I48.19 - Other persistent atrial fibrillation Status: Acute Assessment and Plan: Patient with persistent atrial fibrillation, now with rapid ventricular response at times due to severe anemia, and also his lower than usual metoprolol dose. He was taking metoprolol XL 100 mg daily and then discharged recently on 150 mg daily, currently taking only 50 mg daily. Has been anticoagulated with Xarelto but in view of his severe recurrent anemia it is discontinued. Counseled patient and daughter regarding all of this; in the long run if he is having a reversible type blood loss anemia we might resume Xarelto at some point, and but also can consider left atrial appendage occlusion device. --increase metoprolol to 150 mg daily --hold Xarelto indefinitely, pending evaluation (2) Acute on chronic diastolic CHF (congestive heart failure): Code(s): I50.33 - Acute on chronic diastolic (congestive) heart failure Status: Acute Assessment and Plan: Patient appears to have mild acute on chronic diastolic CHF, likely related to the stress of his severe anemia. Echo at [facility] 2 weeks ago: Echo EF 55% with moderate MR. (I can't hear much MR so doubt it is any worse.) --furosemide 40 mg IV push x1 --patient is unhappy with the urinary frequency he already experiences and anticipates he will be even more unhappy with IV Lasix. Assured him we would assist in his toileting needs (sitter?) --BMP in a.m. (3) Anemia: Qualifiers: Anemia type: unspecified type Qualified Code(s): D64.9 - Anemia, unspecified Code(s): D64.9 - Anemia, unspecified Status: Acute Assessment and Plan: Severe recurrent anemia, status post 1 unit of packed cells at [facility] 2 weeks ago and 1 unit of packed cells here. Apparently has been guaiac negative with a negative GI workup recently. However, he appears iron deficient with a % saturation of 10%, and FOB positive, so likely some chronic GI blood loss. --getting another unit of packed cells tonight --GI evaluation pending --haptoglobin pending --discontinue Xarelto (4) CAD (coronary artery disease): Qualifiers: Coronary Disease-Associated Artery/Lesion type: [place] artery [place] vs. transplanted heart: [place] heart Associated angina: without angina Qualified Code(s): I25.10 - Atherosclerotic heart disease of [place] coronary artery without angina pectoris Code(s): I25.10 - Atherosclerotic heart disease of [place] coronary artery without angina pectoris Status: Chronic Assessment and Plan: History of CAD and stent. Some atypical chest pain but think this CAD is stable. --continue pravastatin (5) Lung cancer: Qualifiers: Laterality: left Lung location: lower lobe of lung Qualified Code(s): C34.32 - Malignant neoplasm of lower lobe, left bronchus or lung Code(s): C34.90 - Malignant neoplasm of unspecified part of unspecified bronchus or lung Status: Acute Assessment and Plan: History of lung cancer status post lobectomy, and for a 2nd lung cancer had radiation therapy recently. Seems to be quiescent at this time. History of Present Illness History of Present Illness Consult date/time: 05/17/23 11:27 Reason For Visit: Anemia Narrative: Roberth Lagunas (pronounced Mo-lay ) is a 78-year-old male whom we are asked to see at the request of Dr. Lisseth Finley for advice and opinion regarding shortness of breath heart failure in consultation. Mr. Lagunas is followed by Dr. Almonte for his history of CAD with circumflex stent in February 2008, longstanding persistent atrial fibrillation, hyperlipidemia, hypertension, diabetes, pulmonary hypertension, COPD. History of non-small cell lung cancer right upper lobe, received radiation therapy, and h/o RLL lobectomy for a prior lung
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
[2023-05-17] MEDS: METOPROLOL SUCCINATE EXT REL 100 MG TABCR PO (13:41)
[2023-05-17] MEDS: FUROSEMIDE INJ 40 MG/4 ML VIAL IV PUSH (13:42)
[2023-05-17] MEDS: FLUTICASONE/SALMETEROL 230-21 MCG INHALER 1 PUFF 2 PUFF INHALATION (20:22)
[2023-05-17] MEDS: amLODIPine BESYLATE 5 MG TABLET 10 MG PO (20:34)
[2023-05-18] VITALS (23 sets, daily range): BP systolic 115–151; BP diastolic 48–82; PULSE 50–114; RESP 16–24; TEMP 36–36.6; O2SAT 93–100
[2023-05-18] MEDS: oxyCODONE HCL (*CRX) 5 MG TAB IR PO ×2 (03:48→10:33)
[2023-05-18 04:36] LABS: Basophils Percent Auto 0.3 % (0.2-1.2); Eosinophils Percent Auto 0.5 % (0-4.4); Hematocrit 22.3 % (42.0-52.0); Immature Granulocyte Percent A 6.6 % (0-0.5); Immature Platelet Fraction Pct 1.1 % (0.9-11.2); Lymphocytes Absolute Auto 1.11 K/mm3 (0.9-3.2); Lymphocytes Percent Auto 14.6 % (18.3-44.2); Mean Corpuscular Hemoglobin 28.8 pg (26-34); Mean Corpuscular Volume 95.7 fl (80-100); Mean Platelet Volume 8.2 fl (7.4-10.4); Monocytes Absolute Auto 2.4 K/mm3 (0.1-0.6); Monocytes Percent Auto 31.4 % (2.6-8.5); Neutrophils Absolute Auto 3.5 K/mm3 (1.3-6.7); Neutrophils Percent Auto 46.6 % (45.5-73.1); Platelet Count Result 78 k/mm3 (150-375); Red Blood Count 2.33 M/mm3 (4.6-6.20); Red Cell Distribution Width 17.1 % (11.5-14.5); White Blood Count 7.6 K/mm3 (4.5-10.0)
[2023-05-18 04:46] LABS: Hemoglobin 6.7 g/dL (14.0-18.0)
[2023-05-18 04:47] LABS: Alanine Aminotransferase 10 U/L (6-50); Albumin Level 3.3 g/dL (3.5-5.1); Alkaline Phosphatase 72 U/L (38-126); Anion Gap 5 mmol/L (8-16); Aspartate Amino Transferase 22 U/L (17-59); Bilirubin,Total 1.3 mg/dL (0.2-1.3); Blood Urea Nitrogen 12 mg/dL (9-20); Calcium 8.7 mg/dL (8.4-10.2); Carbon Dioxide 26 mmol/L (22-30); Chloride 102 mmol/L (98-107); Estimated CRCL calculation 53 ml/min; Estimated Glomerular Filt Rate > 60; Glucose 90 mg/dL (65-110); Potassium 3.9 mmol/L (3.4-5.0); Sodium 133 mmol/L (137-145)
[2023-05-18 05:17] LABS: Anisocytosis 1+ (NORMAL); Hypochromasia 1+ (NORMAL); Microcytosis 1+ (NORMAL); Platelet Estimate Decreased (Adequate); Poikilocytosis 1+ (NORMAL); Schistocytes None Seen (NORMAL)
[2023-05-18] MEDS: FLUTICASONE/SALMETEROL 230-21 MCG INHALER 1 PUFF 2 PUFF INHALATION ×2 (08:02→20:06)
[2023-05-18] MEDS: FERROUS SULFATE 325 MG TABLET DR PO ×2 (10:20→17:14)
[2023-05-18] MEDS: METOPROLOL SUCCINATE EXT REL 50 MG TABCR 150 MG PO (10:20)
[2023-05-18] MEDS: PRAVASTATIN SODIUM 20 MG TABLET 80 MG PO (10:21)
[2023-05-18] MEDS: ROFLUMILAST 500 MCG TABLET PO (10:21)
[2023-05-18] MEDS: PANTOPRAZOLE 40 MG TABLET PO (10:21)
[2023-05-18] MEDS: MONTELUKAST SODIUM 10 MG TABLET PO (10:21)
[2023-05-18] MEDS: OMEGA 3 POLYUNSAT FATTY ACIDS 1 GM CAP PO ×2 (10:21→17:13)
[2023-05-18] MEDS: SERTRALINE HCL 50 MG TABLET PO (10:21)
--- NOTE | 2023-05-18 11:27 | PM.PNCARD ---
Progress Note: A&P Assessment and Plan (1) Persistent atrial fibrillation with rapid ventricular response: Code(s): I48.19 - Other persistent atrial fibrillation Status: Acute Assessment and Plan: Patient with persistent atrial fibrillation, with rapid ventricular response at times due to severe anemia, and also his lower than usual metoprolol dose. Has been anticoagulated with Xarelto but in view of his severe recurrent anemia it is discontinued. In overall better today but still has PARDO. --increased metoprolol to 150 mg daily, his home dose --hold Xarelto indefinitely, pending evaluation (2) Acute on chronic diastolic CHF (congestive heart failure): Code(s): I50.33 - Acute on chronic diastolic (congestive) heart failure Status: Acute Assessment and Plan: Patient appears to have mild acute on chronic diastolic CHF, likely related to the stress of his severe anemia. Echo at [facility] 2 weeks ago: Echo EF 55% with moderate MR. (I can't hear much MR so doubt it is any worse.) --give another furosemide 40 mg IV push x1, since he still has rales, especially if he gets 2 more units of packed cells. --BMP in a.m. (3) Anemia: Qualifiers: Anemia type: unspecified type Qualified Code(s): D64.9 - Anemia, unspecified Code(s): D64.9 - Anemia, unspecified Status: Acute Assessment and Plan: Severe recurrent anemia, status post 1 unit of packed cells at [facility] 2 weeks ago and 1 unit of packed cells here. Apparently has been guaiac negative with a negative GI workup recently. However, he appears iron deficient with a % saturation of 10%, and FOB positive, so likely some chronic GI blood loss. --getting another 2 units of packed cells tonight? --GI evaluation recommends capsule endoscopy --Declined bone marrow bx. --haptoglobin pending --discontinued Xarelto (4) CAD (coronary artery disease): Qualifiers: Coronary Disease-Associated Artery/Lesion type: [place] artery [place] vs. transplanted heart: [place] heart Associated angina: without angina Qualified Code(s): I25.10 - Atherosclerotic heart disease of [place] coronary artery without angina pectoris Code(s): I25.10 - Atherosclerotic heart disease of [place] coronary artery without angina pectoris Status: Chronic Assessment and Plan: History of CAD and stent. Some atypical chest pain but think this CAD is stable. --continue pravastatin (5) Lung cancer: Qualifiers: Laterality: left Lung location: lower lobe of lung Qualified Code(s): C34.32 - Malignant neoplasm of lower lobe, left bronchus or lung Code(s): C34.90 - Malignant neoplasm of unspecified part of unspecified bronchus or lung Status: Acute Assessment and Plan: History of lung cancer status post lobectomy, and for a 2nd lung cancer had radiation therapy recently. Seems to be quiescent at this time. Subjective Date/time seen: 05/18/23 11:27 Interval history: Follow-up for AFib, CHF Mr. Lagunas is followed by Dr. Almonte for his history of CAD with circumflex stent in February 2008, longstanding persistent atrial fibrillation, hyperlipidemia, hypertension, diabetes, pulmonary hypertension, COPD, mild CHF.? History of non-small cell lung cancer right upper lobe, received radiation therapy, and h/o RLL lobectomy for a prior lung cancer..? Holter monitor 02/2023 showed AFib with an average heart rate of 94 ppm; changed to metoprolol 100 mg b.i.d..? 04/2021 echo:? EF 71%, LVH, diastolic dysfunction, no significant valve disease. Admitted to [facility] 04/26/2023 we AFib RVR, pneumonia, and COPD exacerbation it no as well as severe anemia. Status post 1 unit of packed cells. Admitted to [facility] 05/15/2023 with AFib RVR, severe anemia, shortness of breath, mild CHF. Xarelto discontinued. 05/17/2023: Given Lasix 40 mg IV push x1, metoprolol XL increased to 150 mg daily Date of
--- NOTE | 2023-05-18 11:49 | PCPTNOTE ---
Attempted to see patient for PT, however patient declined due to shortness of breath. RN aware.
--- NOTE | 2023-05-18 12:53 | PM.IMPN ---
Progress Note: A&P Assessment and Plan (1) Anemia: Qualifiers: Anemia type: unspecified type Qualified Code(s): D64.9 - Anemia, unspecified Code(s): D64.9 - Anemia, unspecified Status: Acute Assessment and Plan: Multifactorial. Improved after 1 unit pRBCs 05/15 but dropped again to 6.7. Transfuse 2 units of packed red blood cells. No plans for further evaluation. Plans from [place] rehab in the short term. He is considering comfort measures when he returns home. (2) Atrial fibrillation: Qualifiers: Atrial fibrillation type: unspecified Qualified Code(s): I48.91 - Unspecified atrial fibrillation Code(s): I48.91 - Unspecified atrial fibrillation Status: Acute Assessment and Plan: Rate controlled. Xarelto on hold indefinitely with no plans to continue (3) Acute exacerbation of chronic obstructive pulmonary disease: Code(s): J44.1 - Chronic obstructive pulmonary disease with (acute) exacerbation Status: Acute Assessment and Plan: Does not appear to be in acute exacerbation, monitor (4) Pleural effusion, bilateral: Code(s): J90 - Pleural effusion, not elsewhere classified Status: Acute Assessment and Plan: Small bilateral effusions, could be secondary to heart failure, monitor Appears euvolemic otherwise (5) Pulmonary nodule: Code(s): R91.1 - Solitary pulmonary nodule Status: Acute Assessment and Plan: Being followed outpatient by pulmonology Plan DVT prophylaxis SCDs GI prophylaxis on PPI Code status DNR Subjective Date/time seen: 05/18/23 12:53 Interval history: 78-year-old male with history of heart disease, AFib, kidney disease, COPD, diabetes, hypertension and hyperlipidemia among other comorbidities is presenting with chest pain, shortness of breath, increasingly worsening over the last month. Assuming care. Chart reviewed. Patient was seen earlier today and again his daughter was present with his permission. Patient does feel short of breath but denies cough or chest pain. He has been having some wheezing as well. With daughter present, patient wants to proceed with comfort measures and possibly hospice when he returns home after he goes to [place] for therapy. He does not want any further testing including a bone marrow biopsy to further evaluate his anemia. He is okay for blood transfusion but does not want any further interventions at this time. Exam Narrative: General: No acute distress, alert and oriented per baseline HEENT: Atraumatic, normocephalic, mucous membranes moist CV: Irregular rate and rhythm, S1, S2. Tele showing AFib with controlled rate Lungs: Decreased breath sounds in right base with left base inspiratory crackles Abdomen: Soft, nontender, nondistended Extremities: trace pedal edema Skin: No rashes noted, no lesions or wounds seen Psych: Euthymic, normal affect Objective Data Vital Signs Vital Signs: Vital Signs - 24 hr 05/17/23 13:41 05/17/23 15:39 05/17/23 15:51 Temperature 96.4 F L Pulse Rate 110 H 88 Respiratory Rate 16 Blood Pressure 105/65 Pulse Oximetry 94 Oxygen Delivery Nasal Cannula Oxygen Flow Rate 2 Fraction of Inspired Oxygen 05/17/23 16:00 05/17/23 20:22 05/17/23 20:28 Temperature 97.1 F L Pulse Rate 117 H 94 88 Respiratory Rate 18 20 Blood Pressure 122/60 Pulse Oximetry 98 Oxygen Delivery Oxygen Flow Rate Fraction of Inspired Oxygen 05/17/23 21:18 05/17/23 20:00 05/17/23 20:00 Temperature Pulse Rate 80 94 Respiratory Rate 16 Blood Pressure Pulse Oximetry 100 98 Oxygen Delivery Nasal Cannula Nasal Cannula Oxygen Flow Rate 3 2 Fraction of Inspired Oxygen 32 05/18/23 00:00 05/18/23 04:28 05/18/23 04:00 Temperature 97.8 F Pulse Rate 88 84 80 Respiratory Rate 20 Blood Pressure 116/62 Pulse Oximetry 96 Oxygen Delivery
[2023-05-18] MEDS: SODIUM CHLORIDE 0.9% IV 250 ML 30 ML IV CONT (13:37)
[2023-05-18] MEDS: ACETAMINOPHEN 325 MG TABLET 650 MG PO (14:05)
[2023-05-18 16:01] LABS: Albumin 2.7 g/dL (3.8-4.8); Alpha 1 Globulin 0.5 g/dL (0.2-0.3); Alpha 2 Globulin 0.8 g/dL (0.5-0.9); Beta 1 Globulin 0.4 g/dL (0.4-0.6)
[2023-05-18] MEDS: FUROSEMIDE INJ 40 MG/4 ML VIAL IV PUSH (17:02)
[2023-05-18] MEDS: HYDROcodone/acetaminophen (*CRX) 5-325 MG TABLET 1 TAB PO ×2 (18:55→23:49)
--- NOTE | 2023-05-18 18:57 | PC.NURSE ---
This patient, Roberth Lagunas, was transferred to [2nd medical room 255 ] on 05/18/23 at 1835. Personal belongings sent with patient. Report given to [ TRAMAINE Katz]. Appropriate documentation sent with patient. Vital signs stable, patient alert and oriented X4. Second unit of blood running, patient tolerating well.
[2023-05-18] MEDS: amLODIPine BESYLATE 5 MG TABLET 10 MG PO (20:29)
[2023-05-19] VITALS (8 sets, daily range): BP systolic 132–136; BP diastolic 63–95; PULSE 75–91; RESP 18–64; TEMP 36–36.1; O2SAT 95–98
[2023-05-19] MEDS: HYDROcodone/acetaminophen (*CRX) 5-325 MG TABLET 1 TAB PO (03:19)
[2023-05-19 04:03] LABS: Haptoglobin 151 mg/dL (43-212)
[2023-05-19 06:06] LABS: Hematocrit 28.9 % (42.0-52.0); Immature Platelet Fraction Pct 1.1 % (0.9-11.2); Mean Corpuscular HGB Conc 31.1 g/dl (32-36); Mean Corpuscular Hemoglobin 28.8 pg (26-34); Mean Corpuscular Volume 92.3 fl (80-100); Mean Platelet Volume 8.9 fl (7.4-10.4); Platelet Count Result 62 k/mm3 (150-375); Red Blood Count 3.13 M/mm3 (4.6-6.20); Red Cell Distribution Width 17.4 % (11.5-14.5); White Blood Count 7.8 K/mm3 (4.5-10.0)
[2023-05-19 07:24] LABS: Band Neutrophils Percent 9 % (0-6); Lymphocytes Absolute Manual 1.56 K/mm3 (1.1-4.5); Metamyelocytes Percent 14 %; Monocytes Absolute Manual 0.46 K/mm3 (0.1-0.90); Monocytes Percent Manual 6 % (3-9); Neutrophils Absolute Manual 4.68 K/mm3 (1.3-6.7); Neutrophils Percent Manual 51 % (46-73); Total Cells Counted 100
[2023-05-19 07:25] LABS: Platelet Estimate Decreased (Adequate)
[2023-05-19 07:26] LABS: Anisocytosis 2+ (NORMAL)
[2023-05-19 07:27] LABS: Hypochromasia 2+ (NORMAL)
[2023-05-19 07:28] LABS: Schistocytes None Seen (NORMAL); Target Cells 1+ (NORMAL)
[2023-05-19] MEDS: oxyCODONE HCL (*CRX) 5 MG TAB IR PO ×2 (07:47→14:27)
[2023-05-19] MEDS: PRAVASTATIN SODIUM 20 MG TABLET 80 MG PO (08:16)
[2023-05-19] MEDS: ROFLUMILAST 500 MCG TABLET PO (08:16)
[2023-05-19] MEDS: SERTRALINE HCL 50 MG TABLET PO (08:16)
[2023-05-19] MEDS: OMEGA 3 POLYUNSAT FATTY ACIDS 1 GM CAP PO (08:16)
[2023-05-19] MEDS: METOPROLOL SUCCINATE EXT REL 50 MG TABCR 150 MG PO (08:17)
[2023-05-19] MEDS: PANTOPRAZOLE 40 MG TABLET PO (08:17)
[2023-05-19] MEDS: FERROUS SULFATE 325 MG TABLET DR PO (08:17)
[2023-05-19] MEDS: MONTELUKAST SODIUM 10 MG TABLET PO (08:18)
[2023-05-19 08:43] LABS: Glucose Point of Care 104 mg/dl (65-105)
[2023-05-19] MEDS: FLUTICASONE/SALMETEROL 230-21 MCG INHALER 1 PUFF 2 PUFF INHALATION (09:16)
--- NOTE | 2023-05-19 11:00 | PM.PNCARD ---
Progress Note: A&P Assessment and Plan (1) Persistent atrial fibrillation with rapid ventricular response: Code(s): I48.19 - Other persistent atrial fibrillation Status: Acute Assessment and Plan: Patient with persistent atrial fibrillation, with rapid ventricular response at times due to severe anemia, and also his lower than usual metoprolol dose. Has been anticoagulated with Xarelto but in view of his severe recurrent anemia it is discontinued. In overall better today but still has PARDO. --increased metoprolol to 150 mg daily, his home dose --hold Xarelto indefinitely, pending evaluation (2) Acute on chronic diastolic CHF (congestive heart failure): Code(s): I50.33 - Acute on chronic diastolic (congestive) heart failure Status: Acute Assessment and Plan: Patient appears to have mild acute on chronic diastolic CHF, likely related to the stress of his severe anemia. Echo at [facility] 2 weeks ago: Echo EF 55% with moderate MR. (I can't hear much MR so doubt it is any worse.) --Iimproved w/ IV Lasix (3) Anemia: Qualifiers: Anemia type: unspecified type Qualified Code(s): D64.9 - Anemia, unspecified Code(s): D64.9 - Anemia, unspecified Status: Acute Assessment and Plan: Severe recurrent anemia, status post 1 unit of packed cells at [facility] 2 weeks ago and 3 units of packed cells here. Apparently has been guaiac negative with a negative GI workup recently. However, he appears iron deficient with a % saturation of 10%, and FOB positive in February, so likely some chronic GI blood loss. Low platelet count suggest a bonemarrow pathology contributing. --getting another 2 units of packed cells tonight? --GI evaluation recommends capsule endoscopy --Declined bone marrow bx. --haptoglobin normal --discontinued Xarelto (4) CAD (coronary artery disease): Qualifiers: Coronary Disease-Associated Artery/Lesion type: [place] artery [place] vs. transplanted heart: [place] heart Associated angina: without angina Qualified Code(s): I25.10 - Atherosclerotic heart disease of [place] coronary artery without angina pectoris Code(s): I25.10 - Atherosclerotic heart disease of [place] coronary artery without angina pectoris Status: Chronic Assessment and Plan: History of CAD and stent. Some atypical chest pain but think this CAD is stable. --continue pravastatin (5) Lung cancer: Qualifiers: Laterality: left Lung location: lower lobe of lung Qualified Code(s): C34.32 - Malignant neoplasm of lower lobe, left bronchus or lung Code(s): C34.90 - Malignant neoplasm of unspecified part of unspecified bronchus or lung Status: Acute Assessment and Plan: History of lung cancer status post lobectomy, and for a 2nd lung cancer had radiation therapy recently. Seems to be quiescent at this time. Plan Planning on discharge to [facility] today. Subjective Date/time seen: 05/19/23 11:00 Interval history: Follow-up for AFib, CHF Mr. Lagunas is followed by Dr. Almonte for his history of CAD with circumflex stent in February 2008, longstanding persistent atrial fibrillation, hyperlipidemia, hypertension, diabetes, pulmonary hypertension, COPD, mild CHF.? History of non-small cell lung cancer right upper lobe, received radiation therapy, and h/o RLL lobectomy for a prior lung cancer..? Holter monitor 02/2023 showed AFib with an average heart rate of 94 ppm; changed to metoprolol 100 mg b.i.d..? 04/2021 echo:? EF 71%, LVH, diastolic dysfunction, no significant valve disease. Admitted to [facility] 04/26/2023 we AFib RVR, pneumonia, and COPD exacerbation it no as well as severe anemia. Status post 1 unit of packed cells. Admitted to [facility] 05/15/2023 with AFib RVR, severe anemia, shortness of breath, mild CHF. Xarelto discontinued. 05/17/2023: Given Lasix 40 mg IV push x1, metoprolol XL increased to 150 mg d
--- NOTE | 2023-05-19 12:05 | PM.DS ---
DS: Admitting Diagnosis Discharge Date 05/19/23 Admitting Diagnosis Chest pain and SOB DS: Discharge Diagnosis Discharge Diagnosis (1) Anemia: Qualifiers: Anemia type: unspecified type Qualified Code(s): D64.9 - Anemia, unspecified Code(s): D64.9 - Anemia, unspecified Status: Acute (2) Atrial fibrillation: Qualifiers: Atrial fibrillation type: unspecified Qualified Code(s): I48.91 - Unspecified atrial fibrillation Code(s): I48.91 - Unspecified atrial fibrillation Status: Acute (3) Acute exacerbation of chronic obstructive pulmonary disease: Code(s): J44.1 - Chronic obstructive pulmonary disease with (acute) exacerbation Status: Acute (4) Pleural effusion, bilateral: Code(s): J90 - Pleural effusion, not elsewhere classified Status: Acute (5) Pulmonary nodule: Code(s): R91.1 - Solitary pulmonary nodule Status: Acute (6) Lung cancer: Qualifiers: Laterality: left Lung location: lower lobe of lung Qualified Code(s): C34.32 - Malignant neoplasm of lower lobe, left bronchus or lung Code(s): C34.90 - Malignant neoplasm of unspecified part of unspecified bronchus or lung Status: Acute (7) CAD (coronary artery disease): Qualifiers: Associated angina: without angina Coronary Disease-Associated Artery/Lesion type: [place] artery [place] vs. transplanted heart: [place] heart Qualified Code(s): I25.10 - Atherosclerotic heart disease of [place] coronary artery without angina pectoris Code(s): I25.10 - Atherosclerotic heart disease of [place] coronary artery without angina pectoris Status: Chronic (8) Acute on chronic diastolic CHF (congestive heart failure): Code(s): I50.33 - Acute on chronic diastolic (congestive) heart failure Status: Acute DS: Summary Hospital Course Reason for hospitalization: 78-year-old male with history of heart disease, AFib, kidney disease, COPD, diabetes, hypertension and hyperlipidemia among other comorbidities is presenting with chest pain, shortness of breath, increasingly worsening over the last month. Please see H&P for details. Hospital Course: Patient presents with complaints of chest pain. EKG showed atrial fibrillation with RVR with a rate of 106. Troponin was negative x2. Patient has a history of coronary disease with stent placement. He was having atypical chest pain but not felt to be ischemic cardiac disease by cardiology. It was felt the patient had acute on chronic diastolic CHF that was mild in nature. Was felt related to the stress of his severe anemia. Echocardiogram 2 weeks ago showed EF of 55% with moderate MR. This improved with IV Lasix. Patient does have severe recurrent anemia unclear etiology. GI workup has been negative. He has been guaiac negative. He does have iron deficiency however. Hemoglobin 6.4 on admission. He received a total of 3 units of packed red blood cells during his hospital course. Hemoglobin this morning is 9.0. He does have thrombocytopenia noted so consider underlying bone marrow etiology. Patient did have persistent atrial fibrillation with RVR felt related to the anemia. He also appeared to be on a lower than usual dose of metoprolol. His metoprolol was advanced to his home dose of 150 mg daily. He is on anticoagulation with Xarelto but given the severe recurrent anemia, this was discontinued with no plans to resume anticoagulation at this time. Spoke with the patient and daughter about options. The plan was to have Hematology/Oncology evaluate the patient. Patient did not want proceed with any further testing. Daughter states that they have had a family meeting with plans for the patient to go to a skilled facility for short time for strengthening and then to return home on hospice care. Goals of care were discussed. Plan discharge to rehab today. Status at Discharge Cognitive/behavioral stat
== END 2023-05-19 15:34 | DRG 811 ==
LOC: ANHED 05-16 01:20 → ANHIMU 05-16 02:25 → ANH2MED 05-18 18:51
PROVIDERS: Student in an Organized Health Care Education/Training Program; Admitting Provider Internal Medicine; Emergency Provider Emergency Medicine; PCP Internal Medicine; Visit Provider Internal Medicine
DX: D50.9 Iron deficiency anemia, unspecified (principal); I50.33 Acute on chronic diastolic (congestive) heart failure; I13.0 Hypertensive heart and chronic kidney disease with heart failure and stage 1 through stage 4 chronic kidney disease, or unspecified chronic kidney disease; I48.19 Other persistent atrial fibrillation; D69.6 Thrombocytopenia, unspecified; D63.1 Anemia in chronic kidney disease; E78.5 Hyperlipidemia, unspecified; E11.22 Type 2 diabetes mellitus with diabetic chronic kidney disease; F41.9 Anxiety disorder, unspecified; I25.10 Atherosclerotic heart disease of native coronary artery without angina pectoris; I27.20 Pulmonary hypertension, unspecified; J44.9 Chronic obstructive pulmonary disease, unspecified; N18.9 Chronic kidney disease, unspecified; R91.1 Solitary pulmonary nodule; R19.7 Diarrhea, unspecified; Z87.891 Personal history of nicotine dependence; Z20.822 Contact with and (suspected) exposure to COVID-19; Z98.41 Cataract extraction status, right eye; Z85.118 Personal history of other malignant neoplasm of bronchus and lung; Z90.2 Acquired absence of lung [part of]; Z66 Do not resuscitate; Z79.01 Long term (current) use of anticoagulants; Z92.3 Personal history of irradiation; Z95.5 Presence of coronary angioplasty implant and graft
CPT/HCPCS: 36415; 36430; 36600; 71045; 71275; 80048; 80053; 81001; 82607; 82728; 82746; 82805; 82948; 83010; 83540; 83550; 83615; 83880; 84155; 84165; 84484; 85025; 85055; 85380; 85610; 85730; 86850; 86900; 86901; 86923; 87637; 93005; 94640; 96360; 97110; 97161; 97165; 97530; 99285; A9270; J1756; J1940; J7050; P9016; Q9967